=== PATIENT | male | born 1945 | race Asian ===

== ENCOUNTER 2017-06-01 17:03 | Outpatient (CLI) | payer BC ==
--- NOTE | 2017-06-01 18:25 | RAD ---
CHEST TWO VIEW 06/01/17 HISTORY: J40 - bronchitis. COMPARISON: Radiograph 08/26/16. FINDINGS: The lungs are without focal air space, consolidation, pneumothorax or effusion. The cardiac silhouett e and mediastinal contours are similar. No acute osseous abnormality. Flowing anterior osteophytes of thoracic spine. IMPRESSION: Similar exam. No acute intrathoracic abnormality. POS: [facility]
== END 2017-06-01 17:04 | disposition home or self-care (01) ==
LOC: SCSRAD 17:03
PROVIDERS: ATTEND Nurse Practitioner Family
DX: J40 Bronchitis, not specified as acute or chronic (principal)
CPT/HCPCS: 71046

== ENCOUNTER 2021-04-07 13:08 | Outpatient (CLI) | payer BC | END 2021-04-07 13:09 | disposition home or self-care (01) | LOC: SCSRAD 13:08 | PROVIDERS: ATTEND Family Medicine | DX: J18.9 Pneumonia, unspecified organism (principal) | CPT/HCPCS: 71046 ==

== ENCOUNTER 2023-03-03 08:01 | Outpatient (CLI) | payer BC ==
[2023-03-03] MEDS ORDERED: Iopamidol 370 76% 100 ML VIAL ONE (10:09)
== END 2023-03-03 08:02 | disposition home or self-care (01) ==
LOC: BICCT 08:01
PROVIDERS: ATTEND Internal Medicine Hematology & Oncology
DX: C16.2 Malignant neoplasm of body of stomach (principal)
CPT/HCPCS: 71260; 74177; Q9967